=== PATIENT | female | born 1945 | race Caucasian/White ===

== ENCOUNTER 2023-12-02 08:00 | Outpatient (CLI) | payer MEDICARE | END 2023-12-02 23:59 | disposition home or self-care (01) | LOC: LAB.S 08:00 | PROVIDERS: ATTEND Nurse Practitioner | DX: R49.0 Dysphonia (principal) | CPT/HCPCS: 87070 ==

== ENCOUNTER 2024-08-14 13:57 | Inpatient (IN) ==
[2024-08-14 14:34] LABS: BASOPHILS # (AUTO) 0.1 10^3/uL (0.0-0.1); BASOPHILS % (AUTO) 0.8 %; EOSINOPHILS # (AUTO) 0.1 10^3/uL (0.0-0.7); EOSINOPHILS % (AUTO) 1.6 %; HGB - HEMOGLOBIN 15.4 g/dL (12.0-16.0); LYMPHOCYTES # (AUTO) 2.2 10^3/uL (1.5-3.5); LYMPHOCYTES % (AUTO) 24.2 %; MEAN CORPUSCULAR HEMOGLOBIN 29.6 pg (27.0-31.0); MEAN CORPUSCULAR HGB CONC 32.1 g/dL (32.0-36.0); MEAN CORPUSCULAR VOLUME 92.1 fL (81.0-99.0); MEAN PLATELET VOLUME 9.4 fL (7.9-10.8); MONOCYTES # (AUTO) 0.9 10^3/uL (0.0-1.0); MONOCYTES % (AUTO) 10.6 %; NEUTROPHILS # (AUTO) 5.6 10^3/uL (1.5-6.6); NEUTROPHILS % (AUTO) 62.6 %; PLT - PLATELET COUNT 293 10^3/uL (130-450); RED BLOOD COUNT 5.21 10^6/uL (4.20-5.40); RED CELL DISTRIBUTION WIDTH 13.5 % (12.0-15.0); WHITE BLOOD COUNT 8.9 x10^3/uL (4.8-10.8)
--- NOTE | 2024-08-14 14:46 | ED Physician Documentation ---
PD HPI MHE Stated complaint Stated Complaint: OVERDOSE Chief complaint Chief Complaint: MHE Additional information Additional information: 79-year-old female with history of recent left wrist fracture, depression, suicide attempt presents to the emergency department with her friend today for a second suicide attempt. Her friend who is interviewed alone says that recently the patient just went through a break-up and has been experiencing depression and mental health instability since then. She accidentally fell in early August on outstretched left arm and broke her left wrist and at that visit she did endorse some depression and suicidal ideation she was started on antidepressants but has not been on antidepressants recently. Patient's friend reports that last night sheWent to bed and she had a bottle of [place] pills about 12 pills in the bottle and when she woke this morning to go take a pill she noted that the bottle was empty. She does note that her antidepressant bottle of pills was not empty patient was very sleepy and lethargic when the friend confronted the patient about this the friend did admit to it. Patient interviewed alone she does endorse that she has recently had a break-up and has been having a hard time coping with this she says last time she attempted suicide was at her sister's house in [place] a couple years ago. She denies any homicidal ideation but is still currently feeling suicidal and said that she wanted to take the pills to make the pain go away and points to her chest. She is lethargic and sleepy. [place] Coma Scale Assess Eye opening: To Voice Verbal response: Oriented Motor response: Obeys Commands Total score: 14 Meds/Allgy Home Medications Ambulatory Orders Medication Instructions Recorded Confirmed bupropion HCl 100 mg tablet,12 hr 100 mg PO BID #120 tabs 08/05/24 08/08/24 sustained-release (Wellbutrin SR) fluoxetine 10 mg capsule (Prozac) 10 mg PO DAILY #60 caps 08/05/24 08/08/24 hydrocodone 5 mg-acetaminophen 325 1 tab PO Q4H PRN pain #14 tabs 08/05/24 08/08/24 mg tablet Allergies Allergies Allergy/AdvReac Type Severity Reaction Status Date / Time No Known Drug Allergies Allergy Verified 08/08/24 10:42 [facility] Social History Social History (Updated 08/08/24 @ 10:52 by Clarisa Hope MA) Smoking Status: Former smoker Relationship: Do you feel safe in your home environment?: Yes Suffered physical, verbal, emotional, or financial abuse?: No POLST Patient has POLST: No Exam Constitutional abnormal general appearance (disheveled), no apparent distress, abnormal body habitus (thin), limitations noted (altered mental status) and (behavioral limitations) and level of alertness abnormal (lethargic) HENMT normocephalic and head/scalp atraumatic Eyes PERRL Chest inspection of chest normal Respiratory breath sounds equal bilaterally and normal respiratory effort Cardiovascular normal heart rate noted Gastrointestinal abdomen normal to inspection, abdomen soft to palpation and nontender to palpation Genitourinary no CVA tenderness Extremities normal to inspection Psychiatry mental status abnormal (somnolent), oriented x3, thought process abnormality noted (suicidality), cooperative, affect abnormality noted (depressed) and (flat), psychomotor activity normal and memory normal Skin skin color normal, no rash and no ecchymosis noted Results Vitals Vitals: Vital Signs - 24 hr 08/14/24 14:10 08/14/24 14:13 08/14/24 14:20 Temperature 36.8 C Temperature Source Temporal Artery Scan Pulse Rate 58 L 55 L Respiratory Rate 16 14 Blood Pressure 118/75 111/64 O2 Saturation 96 98 O2 Source Room air Room air Pain Intensity 10 10 08/14/24 14:37 08/14/24 15:30 08/14/24 16:30 Temperature Temperature Source Pulse Rate 62 56 L 57 L Respiratory Rate 12 14 18 Blood Pressure 150/109 H 111/64 114/74 O2 Saturation 93 94 97 O2 Source Room air Room air Room air Pain Intensity 0 08/14/24 17:30 Temperature Temperature Source Pulse Rate 61 Respiratory Rate 20 Blood Pressure 118/74 O2 Saturation 94 O2 Source Room air Pain Intensity Oxygen O2 Source Room air Labs Labs: Laboratory Tests 08/14/24 08/14/24 08/14/24 14:27 16:19 17:18 WBC 8.9 RBC 5.21 Hgb 15.4 Hct 48.0 H MCV 92.1 MCH 29.6 MCHC 32.1 RDW 13.5 Plt Count 293 MPV 9.4 Neut # (Auto) 5.6 Lymph # (Auto) 2.2 [place] # (Auto) 0.9 Eos # (Auto) 0.1 Baso # (Auto) 0.1 Absolute Nucleated RBC 0.00 Nucleated RBC % 0.0 PT 11.8 INR 1.1 APTT 27.0 Sodium 137 137 Potassium 4.0 4.2 Chloride 105 105 Carbon Dioxide 25 27 Anion Gap 7.0 5.0 L BUN 22 H 22 H Creatinine 0.8 0.8 Estimated GFR (MDRD) 69 L 69 L Glucose 133 H 121 H Calcium 9.6 9.2 Total Bilirubin 1.1 H 1.0 AST 13 15 ALT 8 L 8 L Alkaline Phosphatase 81 72 Total Protein 6.6 6.4 Albumin 4.2 4.0 Globulin 2.4 2.4 Albumin/Globulin Ratio 1.8 1.7 Lipase 29 TSH 2.83 Salicylates < 1.5 Acetaminophen 71.8 H* 45.6 H* Ethyl Alcohol < 10.0 PD Medical Decision Making ED course ED course: 79-year-old female presents emergency department for [place] overdose for suicide attempt. Patient is pretty somnolent and not the most reliable historian as her friend reports that she has had some cognitive impairment undiagnosed but patient's friend is worried about possible early symptoms of dementia or Alzh eimer's. Initial labs are complete for further evaluation no leukocytosis no anemia normal PT/INR normal LFTs Tylenol level did come back elevated at 71.8 negative alcohol level. I spoke with the on-call poison control given that we do not know if the [place] overdose started last night or this morning and given that patient is not reliable historian we should presume that the overdose happened last night around 11 PM according to friend's timeline. Pharmacist recommended redrawing a Tylenol level in 2 hours from initial draw we review the Tylenol level and is downtrending at 45.6 which is concerning. We went ahead and started her on acetylcysteine we gave her a loading dose of 7.5 g infusion over 1 hour and we will plan to admit the patient. Hospitalist is agreeable to admit the patient she has received report and understands to continue acetylcysteine infusion under the standard dosing protocol and will reach out to pharmacy as well as Poison control. Friend is aware that patient will be admitted. Discharge Plan Discharge Patient Disposition: [facility] DC/Xfer Condition: Good Clinical Impression: Drug overdose, Depression with suicidal ideation, Suicide attempt Interventions: ED Admission Assessment Last Done: 08/14/24 19:58
[2024-08-14 14:47] LABS: ALBUMIN 4.2 g/dL (3.2-5.5); ALBUMIN/GLOBULIN RATIO 1.8 (1.0-2.2); ALKALINE PHOSPHATASE 81 IU/L (42-121); ALT ALANINE AMINOTRANSFERASE 8 IU/L (10-60); AST ASPARTATE AMINOTRANSFERASE 13 IU/L (10-42); BILIRUBIN,TOTAL 1.1 mg/dL (0.2-1.0); BUN - BLOOD UREA NITROGEN 22 mg/dL (6-20); CALCIUM 9.6 mg/dL (8.5-10.3); CARBON DIOXIDE - CO2 25 mmol/L (21-32); CHLORIDE 105 mmol/L (101-111); CREATININE 0.8 mg/dL (0.6-1.3); ETOH - ETHANOL < 10.0 mg/dL; GFR - MDRD 69 (>89); GLUCOSE 133 mg/dL (74-104); LIPASE 29 U/L (11-82); SODIUM 137 mmol/L (135-145); TOTAL PROTEIN 6.6 g/dL (6.4-8.9)
[2024-08-14 14:50] LABS: ACETAMINOPHEN 71.8 ug/mL; SALICYLATE < 1.5 mg/dL
[2024-08-14 15:03] LABS: THYROID STIMULATING HORMONE 2.83 uIU/mL (0.34-5.60)
[2024-08-14 16:38] LABS: ALBUMIN/GLOBULIN RATIO 1.7 (1.0-2.2); CALCIUM 9.2 mg/dL (8.5-10.3); CREATININE 0.8 mg/dL (0.6-1.3); POTASSIUM 4.2 mmol/L (3.5-4.5); TOTAL PROTEIN 6.4 g/dL (6.4-8.9)
[2024-08-14 16:41] LABS: ACETAMINOPHEN 45.6 ug/mL
[2024-08-14 17:40] LABS: INR 1.1 (0.8-1.2); PT - PROTHROMBIN TIME 11.8 secs (9.9-12.6)
[2024-08-14] MEDS ORDERED: SODIUM CHLORIDE FLUSH 0.9% 10 ML SYRINGE IVP PRN (18:28)
[2024-08-14] MEDS ORDERED: ONDANSETRON ODT 4 MG TABLET TL PRN (18:33)
[2024-08-14] MEDS ORDERED: HYDROmorphone 0.5 MG/0.5 ML SYRINGE IVP PRN (18:33)
--- NOTE | 2024-08-14 18:40 | HISTORY & PHYSICAL EXAMINATION ---
Chief Complaint Chief Complaint Chief Complaint: overdose, intentional, AMS History of Present Illness Admitted From Admitted From:: home History Obtained From Records Reviewed: previous ED records History of Present Illness HPI Comment/Other: 79 yo female with recent wrist fracture after FOOSH presents to ED with overdose sometime between 10pm and 11am. Took up to 3900 mg APAP, combined with hydrocodone. One previous suicide attempt via pills, not too long ago, after a relationship that ended. Unclear what she took or what the intervention was at that time. She admits to being depressed. She states she has issues with pieced people being close to her and then . She has been quite sad for the last 3 days of her recent break-up and distress over separation. She states she took "a handful" of hydrocodone and that it was medication that had been stored prescribed to her. She relates to me a recent history of a left wrist fracture that has taken away many of her coping mechanisms. 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 She is expected to get the fiberglass cast off her wrist on September 12. About a month from now. She states she does not drink alcohol very occasionally a glass of wine states she had 1 alcoholic beverage yesterday. Occasionally smokes marijuana but is noted that the marijuana does make her anxiety much worse and therefore does not often do it. 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 She presented to the emergency department today for altered mental status. When asked about her CODE STATUS she states DNR. I do not feel I can make her DNR as she is actively suicidal. She states that her longtime friend Tania Collins would be the person who would make her medical decisions where she unable to do so.PCP is Dayne Rojas. Meds/Allgy Home Medications Ambulatory Orders Medication Instructions Recorded Confirmed bupropion HCl 100 mg tablet,12 hr 100 mg PO BID #120 tabs 08/05/24 08/08/24 sustained-release (Wellbutrin SR) fluoxetine 10 mg capsule (Prozac) 10 mg PO DAILY #60 caps 08/05/24 08/08/24 hydrocodone 5 mg-acetaminophen 325 1 tab PO Q4H PRN pain #14 tabs 08/05/24 08/08/24 mg tablet Allergies Allergies Allergy/AdvReac Type Severity Reaction Status Date / Time No Known Drug Allergies Allergy Verified 08/08/24 10:42 [facility] Social History Social History (Updated 08/08/24 @ 10:52 by Clarisa Hope MA) Smoking Status: Former smoker Relationship: Do you feel safe in your home environment?: Yes Suffered physical, verbal, emotional, or financial abuse?: No POLST Patient has POLST: No POLST Status: Full Code Review of Systems Status of ROS: 10 or more systems reviewed and unremarkable except as noted in history and below Constitutional Reports: Fatigue; Denies: Fever, Chills or Malaise Eyes Denies: Change in vision Ears, nose, mouth, and throat Denies: Change in hearing or Neck pain Cardiovascular Reports: chest pain (clearly states to me that this is related to her emotional distress); Denies: Irregular heart rate or shortness of breath with exertion Respiratory Denies: Shortness of breath, Cough or Sputum production Gastrointestinal Reports: Poor appetite; Denies: Abdominal pain, Nausea or Vomiting Genitourinary Denies: Urinary frequency Musculoskeletal Denies: Neck pain Integumentary/Breast Denies: Rash, Itching or Dryness Neurological Denies: Headache Psychiatric Reports: Depression, Anxiety, Hopelessness and Memory loss; Denies: Panic attacks Endocrine Reports: Fatigue Prior Level of Functionality: independent Exam Constitutional Thin female lying in position on the bed. Appears disheveled HENMT normocephalic, hearing grossly normal bilaterally, external ears normal and dentition normal Eyes conjunctivae normal and no scleral icterus Neck/C-Spine visual inspection normal Lymph no lymphadenopathy noted Chest inspection of chest normal Respiratory breath sounds equal bilaterally and normal respiratory effort Cardiovascular normal heart rate noted Gastrointestinal abdomen normal to inspection and abdomen soft to palpation Extremities normal to inspection left upper extremity in a short arm cast. Neurology pcb designer II-XII intact, no movement abnormality noted and GCS 15 Psychiatry mental status grossly normal, oriented x3, cooperative and memory normal (seems to have a short term memory deficit. ) Skin skin color normal and no jaundice Depressed affect. Patient is alert and oriented to person place and time. She is also oriented to the situation. As the interview progresses she makes more frequent eye contact with me. Initially she was quite withdrawn. However she is somewhat preservative in her storytelling. She tells me a brief version of her life story, then she tells me about her more recent history and then she goes back and tells me about her early life without recalling that she had previously told me exactly the same thing. Conclusion/Plan Problem List (1) Drug overdose: Plan: Tylenol overdose. Please see levels below. By my reckoning patient took about 3900 mg of Tylenol sometime between 10 PM and 11 AM. She then presented to the emergency department. Discussed this patient with Floresita Seymour NP in the emergency department and decision was made to admit her for treatment of Tylenol overdose using the standard dosing protocol per poison control. I did also discussed this patient with Poison Control Center and and following their recommendations for when to repeat labs. I am following N-acetylcysteine protocol for Tylenol overdosing.I will check repeat CBC, CMP, INR and Tylenol level in the morning. I will then repeat the same labs about 2 hours before the current bag of N-acetylcysteine is finished. If her Tylenol level is undetectable with a.m. labs I will not check this in the afternoon. Laboratory Tests 08/14/24 08/14/24 08/14/24 14:27 16:19 17:18 INR 1.1 Acetaminophen 71.8 H* 45.6 H* (2) Suicide attempt: Plan: This is patient's second suicide attempt and recent history. Sounds like she has a long history of mental health issues. With issues in relationships. She has had much distress over recent separation. We will treat her medical issues overnight. She will be on one-to-one sitter for suicide prevention. I will obtain telepsych consultation in the morning. (3) Fracture of wrist: Plan: Recent fall on outstretched hand resulting in distal radius fracture being treated nonoperatively by orthopedics here at [facility]. She will be immobilized until September 12. Normal coping mechanisms for her are physical activity. Her inability to engage in physical activity has caused decline of her mental health. Qualifiers: Encounter type: initial encounter Laterality: left (4) Depression with suicidal ideation: Plan: Lifelong struggles with mental health. Known history of 2 recent suicide attempts. I am unclear if these have been more recent or if she has had previous attempts in her lifetime. Plan I have spent 85 minutes in the care of this patient today. This includes time [id number], review and ordering of diagnostic imaging and laboratory studies and consultation with other providers.. Discussion with Poison Control Center pharmacist for recommendations regarding labs and N-acetylcysteine protocol. Discussion with ED provider and decision to admit the patient for Tylenol overdose. Lab Results Lab results reviewed: Yes 08/14/24 14:27 08/14/24 16:19 Core Measures Anticipated LOS I expect patient to be DC'd or transferred within 96 hours.: Yes Issues Hospital Issues and Management Plan: Tylenol overdose Suicide attempt Appropriate treatment of Tylenol overdose and with N-acetylcysteine and monitoring of liver function and Tylenol level. Telepsych consultation for management of suicidal ideation DVT/VTE - Prophylaxis VTE/DVT Device ordered at admit?: Yes VTE/DVT Prophylaxis med ordered at admit?: Yes
[2024-08-14] MEDS: ACETYLCYSTEINE IV STA (18:43)
[2024-08-14] MEDS: DEXTROSE 5% IV STA (18:43)
[2024-08-14] MEDS: ACETYLCYSTEINE 3,000 MG in DEXTROSE 5% 500 ML IV ONE (20:01)
[2024-08-14] MEDS: HEPARIN 5,000 UNIT/ML VIAL SUBQ SCH (21:51)
[2024-08-14 23:14] LABS: BILIRUBIN,URINE NEGATIVE (NEGATIVE); GLUCOSE, URINE (UA) NEGATIVE (NEGATIVE); KETONES,URINE (UA) >=80 mg/dL (NEGATIVE); LEUKOCYTE ESTERASE, URINE NEGATIVE (NEGATIVE); NITRITE,URINE NEGATIVE (NEGATIVE); OCCULT BLOOD,URINE NEGATIVE (NEGATIVE); PROTEIN,URINE NEGATIVE (NEGATIVE); UROBILINOGEN,URINE 0.2 (NORMAL) E.U./dL (NORMAL)
[2024-08-14 23:15] LABS: CLARITY,URINE CLEAR (CLEAR)
[2024-08-14 23:31] LABS: AMPHETAMINE SCREEN,URINE NEGATIVE (NEGATIVE); BARBITURATE SCREEN,UR NEGATIVE (NEGATIVE); BENZODIAZEPINES SCREEN, URINE NEGATIVE (NEGATIVE); BUPRENORPHINE SCREEN, URINE NEGATIVE (NEGATIVE); COCAINE SCREEN URINE NEGATIVE (NEGATIVE); METHADONE SCREEN, URINE NEGATIVE (NEGATIVE); METHAMPHETAMINES SCREEN, URINE NEGATIVE (NEGATIVE); OPIATE SCREEN, URINE POSITIVE (NEGATIVE); OXYCODONE SCREEN, URINE NEGATIVE (NEGATIVE); THC CANNABINOID SCREEN, URINE POSITIVE (NEGATIVE); TRICYCLIC ANTIDEPRESSANT,URINE NEGATIVE (NEGATIVE)
[2024-08-15] MEDS: ACETYLCYSTEINE IV ONE (00:15)
[2024-08-15] MEDS: DEXTROSE 5% IV ONE (00:15)
[2024-08-15] MEDS: SODIUM CHLORIDE FLUSH 0.9% 10 ML SYRINGE IVP SCH (04:28)
[2024-08-15 04:46] LABS: BASOPHILS # (AUTO) 0.1 10^3/uL (0.0-0.1); BASOPHILS % (AUTO) 0.5 %; EOSINOPHILS # (AUTO) 0.1 10^3/uL (0.0-0.7); EOSINOPHILS % (AUTO) 0.9 %; HCT - HEMATOCRIT 45.7 % (37.0-47.0); HGB - HEMOGLOBIN 14.9 g/dL (12.0-16.0); LYMPHOCYTES # (AUTO) 1.6 10^3/uL (1.5-3.5); LYMPHOCYTES % (AUTO) 12.6 %; MEAN CORPUSCULAR HEMOGLOBIN 30.1 pg (27.0-31.0); MEAN CORPUSCULAR HGB CONC 32.6 g/dL (32.0-36.0); MEAN CORPUSCULAR VOLUME 92.3 fL (81.0-99.0); MEAN PLATELET VOLUME 9.9 fL (7.9-10.8); MONOCYTES # (AUTO) 1.1 10^3/uL (0.0-1.0); MONOCYTES % (AUTO) 8.2 %; NEUTROPHILS % (AUTO) 77.5 %; PLT - PLATELET COUNT 261 10^3/uL (130-450); RED BLOOD COUNT 4.95 10^6/uL (4.20-5.40); RED CELL DISTRIBUTION WIDTH 13.6 % (12.0-15.0)
[2024-08-15 04:58] LABS: ACETAMINOPHEN 7.3 ug/mL; ALBUMIN 3.9 g/dL (3.2-5.5); ALBUMIN/GLOBULIN RATIO 1.7 (1.0-2.2); CALCIUM 9.4 mg/dL (8.5-10.3); CREATININE 0.7 mg/dL (0.6-1.3); TOTAL PROTEIN 6.2 g/dL (6.4-8.9)
[2024-08-15 05:04] LABS: INR 1.3 (0.8-1.2); PT - PROTHROMBIN TIME 13.7 secs (9.9-12.6)
--- NOTE | 2024-08-15 08:53 | PROVIDER PROGRESS NOTE ---
Assessment/Plan Problem List (1) Drug overdose: Qualifiers: Encounter type: initial encounter Injury intent: intentional self-harm Qualified Code(s): T50.902A - Poisoning by unspecified drugs, medicaments and biological substances, intentional self-harm, initial encounter (2) Suicide attempt: (3) Fracture of wrist: Qualifiers: Encounter type: initial encounter Laterality: left Fracture type: c losed Qualified Code(s): S62.102A - Fracture of unspecified carpal bone, left wrist, initial encounter for closed fracture (4) Depression with suicidal ideation: Current Meds Current Meds: Current Medications Generic Name Dose Route Start Last Admin Trade Name Freq PRN Reason Stop Dose Admin Heparin Sodium (Porcine) 5,000 unit 08/14/24 21:00 08/15/24 08:37 Heparin 5,000 Unit/Ml Vial SUBQ 5,000 unit BID VOLODYMYR Administration Hydromorphone HCl 0.5 mg 08/14/24 18:33 Hydromorphone 0.5 Mg/0.5 Ml Syringe IVP Q2H PRN Pain 8 to 10 Ondansetron HCl 4 mg 08/14/24 18:33 Ondansetron Odt 4 Mg Tablet TL Q6HR PRN Nausea / Vomiting Sodium Chloride 10 ml 08/14/24 18:28 Sodium Chloride Flush 0.9% 10 Ml Syringe IVP PRN PRN NEEDED PER PROVIDER ORDERS Sodium Chloride 10 ml 08/15/24 01:00 08/15/24 08:38 Sodium Chloride Flush 0.9% 10 Ml Syringe IVP Not Given 0100,0900,1700 [facility] Lab Result 08/15/24 04:00 08/15/24 04:00 Subjective Subjective Patient Reports: Pain (L wrist discomfort associated with fracture and cast) Nursing Reports: No Complaints Objective Vital Signs: Vital Signs - 24 hr 08/14/24 14:10 08/14/24 14:13 08/14/24 14:20 Temperature 36.8 C Temperature Source Temporal Artery Scan Pulse Rate 58 L 55 L Pulse Rate [Brachial] Respiratory Rate 16 14 Blood Pressure 118/75 111/64 Blood Pressure [Right Brachial artery] O2 Saturation 96 98 O2 Source Room air Room air Sedation scale Pain Intensity 10 10 08/14/24 14:37 08/14/24 15:30 08/14/24 16:30 Temperature Temperature Source Pulse Rate 62 56 L 57 L Pulse Rate [Brachial] Respiratory Rate 12 14 18 Blood Pressure 150/109 H 111/64 114/74 Blood Pressure [Right Brachial artery] O2 Saturation 93 94 97 O2 Source Room air Room air Room air Sedation scale Pain Intensity 0 08/14/24 17:30 08/14/24 18:30 08/14/24 19:39 Temperature 36.6 C Temperature Source Temporal Artery Scan Pulse Rate 61 64 80 Pulse Rate [Brachial] Respiratory Rate 20 16 16 Blood Pressure 118/74 113/73 128/78 Blood Pressure [Right Brachial artery] O2 Saturation 94 96 96 O2 Source Room air Room air Room air Sedation scale Pain Intensity 08/14/24 21:00 08/14/24 23:27 08/15/24 07:26 Temperature 36.6 C 36.7 C 36.7 C Temperature Source Temporal Artery Scan Temporal Artery Scan Skin Pulse Rate Pulse Rate [Brachial] 81 72 84 Respiratory Rate 19 16 18 Blood Pressure Blood Pressure [Right Brachial artery] 127/96 H 129/82 117/70 O2 Saturation 93 96 95 O2 Source Room air Room air Room air Sedation scale 0-Fully awake 0-Fully awake 0-Fully awake Pain Intensity 0 Oxygen O2 Source Room air I&O (Last 24 Hrs): Intake and Output Totals x24h 08/13/24 08/14/24 08/15/24 23:59 23:59 23:59 Intake Total 245.5 / 245.5 875 / 875 Output Total 400 / 400 875 / 875 Balance -154.5 / -154.5 0 / 0 General: Alert, Cooperative and No acute distress Results Results: Laboratory Results WBC 13.0 x10^3/uL (4.8-10.8) H 08/15/24 04:00 RBC 4.95 10^6/uL (4.20-5.40) 08/15/24 04:00 Hgb 14.9 g/dL (12.0-16.0) 08/15/24 04:00 Hct 45.7 % (37.0-47.0) 08/15/24 04:00 MCV 92.3 fL (81.0-99.0) 08/15/24 04:00 MCH 30.1 pg (27.0-31.0) 08/15/24 04:00 MCHC 32.6 g/dL (32.0-36.0) 08/15/24 04:00 RDW 13.6 % (12.0-15.0) 08/15/24 04:00 Plt Count 261 10^3/uL (130-450) 08/15/24 04:00 MPV 9.9 fL (7.9-10.8) 08/15/24 04:00 Neut # (Auto) 10.0 10^3/uL (1.5-6.6) H 08/15/24 04:00 Lymph # (Auto) 1.6 10^3/uL (1.5-3.5) 08/15/24 04:00 [place] # (Auto) 1.1 10^3/uL (0.0-1.0) H 08/15/24 04:00 Eos # (Auto) 0.1 10^3/uL (0.0-0.7) 08/15/24 04:00 Baso # (Auto) 0.1 10^3/uL (0.0-0.1) 08/15/24 04:00 Absolute Nucleated RBC 0.00 x10^3/uL 08/15/24 04:00 Nucleated RBC % 0.0 /100WBC 08/15/24 04:00 PT 13.7 secs (9.9-12.6) H 08/15/24 04:00 INR 1.3 (0.8-1.2) H 08/15/24 04:00 APTT 27.0 secs (24.9-33.3) 08/14/24 17:18 Sodium 137 mmol/L (135-145) 08/15/24 04:00 Potassium 4.0 mmol/L (3.5-4.5) 08/15/24 04:00 Chloride 102 mmol/L (101-111) 08/15/24 04:00 Carbon Dioxide 28 mmol/L (21-32) 08/15/24 04:00 Anion Gap 7.0 (6-13) 08/15/24 04:00 BUN 15 mg/dL (6-20) 08/15/24 04:00 Creatinine 0.7 mg/dL (0.6-1.3) 08/15/24 04:00 Estimated GFR (MDRD) 81 (>89) L 08/15/24 04:00 Glucose 167 mg/dL (74-104) H 08/15/24 04:00 Calcium 9.4 mg/dL (8.5-10.3) 08/15/24 04:00 Total Bilirubin 1.0 mg/dL (0.2-1.0) 08/15/24 04:00 AST 11 IU/L (10-42) 08/15/24 04:00 ALT 7 IU/L (10-60) L 08/15/24 04:00 Alkaline Phosphatase 68 IU/L (42-121) 08/15/24 04:00 Total Protein 6.2 g/dL (6.4-8.9) L 08/15/24 04:00 Albumin 3.9 g/dL (3.2-5.5) 08/15/24 04:00 Globulin 2.3 g/dL (2.1-4.2) 08/15/24 04:00 Albumin/Globulin Ratio 1.7 (1.0-2.2) 08/15/24 04:00 Lipase 29 U/L (11-82) 08/14/24 14:27 TSH 2.83 uIU/mL (0.34-5.60) 08/14/24 14:27 Urine Color YELLOW 08/14/24 23:05 Urine Clarity CLEAR (CLEAR) 08/14/24 23:05 Urine pH 6.0 PH (5.0-7.5) 08/14/24 23:05 Ur Specific [place] >=1.030 (1.002-1.030) H 08/14/24 23:05 Urine Protein NEGATIVE mg/dL (NEGATIVE) 08/14/24 23:05 Urine Glucose (UA) NEGATIVE mg/dL (NEGATIVE) 08/14/24 23:05 Urine Ketones >=80 mg/dL (NEGATIVE) H 08/14/24 23:05 Urine Occult Blood NEGATIVE (NEGATIVE) 08/14/24 23:05 Urine Nitrite NEGATIVE (NEGATIVE) 08/14/24 23:05 Urine Bilirubin NEGATIVE (NEGATIVE) 08/14/24 23:05 Urine Urobilinogen 0.2 (NORMAL) E.U./dL (NORMAL) 08/14/24 23:05 Ur Leukocyte Esterase NEGATIVE (NEGATIVE) 08/14/24 23:05 Ur Microscopic Review NOT INDICATED 08/14/24 23:05 Urine Culture Comments NOT INDICATED 08/14/24 23:05 Salicylates < 1.5 mg/dL 08/14/24 14:27 Urine Opiates Screen POSITIVE (NEGATIVE) H 08/14/24 23:05 Ur Buprenorphine Scrn NEGATIVE (NEGATIVE) 08/14/24 23:05 Ur Oxycodone Screen NEGATIVE (NEGATIVE) 08/14/24 23:05 Urine Methadone Screen NEGATIVE (NEGATIVE) 08/14/24 23:05 Acetaminophen 7.3 ug/mL 08/15/24 04:00 Ur Barbiturates Screen NEGATIVE (NEGATIVE) 08/14/24 23:05 Ur Tricyclics Screen NEGATIVE (NEGATIVE) 08/14/24 23:05 Ur Phencyclidine Scrn NEGATIVE (NEGATIVE) 08/14/24 23:05 Ur Amphetamine Screen NEGATIVE (NEGATIVE) 08/14/24 23:05 U Methamphetamines Scrn NEGATIVE (NEGATIVE) 08/14/24 23:05 U Benzodiazepines Scrn NEGATIVE (NEGATIVE) 08/14/24 23:05 Urine Cocaine Screen NEGATIVE (NEGATIVE) 08/14/24 23:05 U Cannabinoids Screen POSITIVE (NEGATIVE) H 08/14/24 23:05 Ur Drug Screen Comment CUTOFF CONC BELOW: 08/14/24 23:05 Ethyl Alcohol < 10.0 mg/dL 08/14/24 14:27 ABX Reporting Has patient been on IV antibiotics over the past 48 hours?: No Current Medications Current Medications Current Medications: Current Medications Generic Name Dose Route Start Last Admin Trade Name Freq PRN Reason Stop Dose Admin Heparin Sodium (Porcine) 5,000 unit 08/14/24 21:00 08/15/24 08:37 Heparin 5,000 Unit/Ml Vial SUBQ 5,000 unit BID VOLODYMYR Administration Hydromorphone HCl 0.5 mg 08/14/24 18:33 Hydromorphone 0.5 Mg/0.5 Ml Syringe IVP Q2H PRN Pain 8 to 10 Ondansetron HCl 4 mg 08/14/24 18:33 Ondansetron Odt 4 Mg Tablet TL Q6HR PRN Nausea / Vomiting Sodium Chloride 10 ml 08/14/24 18:28 Sodium Chloride Flush 0.9% 10 Ml Syringe IVP PRN PRN NEEDED PER PROVIDER ORDERS Sodium Chloride 10 ml 08/15/24 01:00 08/15/24 08:38 Sodium Chloride Flush 0.9% 10 Ml Syringe IVP Not Given 0100,0900,1700 VOLODYMYR
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
--- NOTE | 2024-08-15 12:11 | PHARMACY PROGRESS NOTE ---
Best Possible Medication History Admit Date and Time: 08/14/24 1828 Home Medications Medication Instructions Recorded Confirmed Type bupropion HCl 100 mg tablet,12 hr 100 mg PO BID #120 tabs 08/05/24 08/15/24 Rx sustained-release (Wellbutrin SR) fluoxetine 10 mg capsule (Prozac) 10 mg PO DAILY #60 caps 08/05/24 08/15/24 Rx hydrocodone 5 mg-acetaminophen 325 1 tab PO Q4H PRN pain #14 tabs 08/05/24 08/15/24 Rx mg tablet Processed by: Pharmacy (Medication Reconciliation completed by Metal Drill OperatorSheldon) Medications reviewed in ED?: No Medication History completed: Yes Patient Interview: Completed Secondary Source(s): Pharmacy records (called [facility] to verify medications were picked up, as the insurance fill hx was not populating any medications.) [facility] Statement: As the person ultimately responsible for medication therapy, providers are able to order a medication from an existing home medication list in [facility] via the "Reconcile Routine" prior to Confirmation of that medication by research support specialist. Such practice is discouraged except when the physician, in their clinical judgment, deems that a medical need exists for a medication without regard to previous use.
[2024-08-15 13:42] LABS: BASOPHILS # (AUTO) 0.1 10^3/uL (0.0-0.1); BASOPHILS % (AUTO) 0.5 %; EOSINOPHILS # (AUTO) 0.3 10^3/uL (0.0-0.7); EOSINOPHILS % (AUTO) 2.1 %; HCT - HEMATOCRIT 45.2 % (37.0-47.0); HGB - HEMOGLOBIN 14.7 g/dL (12.0-16.0); LYMPHOCYTES # (AUTO) 1.6 10^3/uL (1.5-3.5); LYMPHOCYTES % (AUTO) 11.7 %; MEAN CORPUSCULAR HEMOGLOBIN 29.9 pg (27.0-31.0); MEAN CORPUSCULAR HGB CONC 32.5 g/dL (32.0-36.0); MEAN CORPUSCULAR VOLUME 92.1 fL (81.0-99.0); MEAN PLATELET VOLUME 9.4 fL (7.9-10.8); MONOCYTES # (AUTO) 1.3 10^3/uL (0.0-1.0); MONOCYTES % (AUTO) 9.6 %; NEUTROPHILS # (AUTO) 10.1 10^3/uL (1.5-6.6); NEUTROPHILS % (AUTO) 75.7 %; PLT - PLATELET COUNT 257 10^3/uL (130-450); RED BLOOD COUNT 4.91 10^6/uL (4.20-5.40); RED CELL DISTRIBUTION WIDTH 13.6 % (12.0-15.0); WHITE BLOOD COUNT 13.3 x10^3/uL (4.8-10.8)
[2024-08-15 13:54] LABS: INR 1.3 (0.8-1.2); PT - PROTHROMBIN TIME 14.2 secs (9.9-12.6)
[2024-08-15 13:55] LABS: ALBUMIN 3.8 g/dL (3.2-5.5); ALBUMIN/GLOBULIN RATIO 1.7 (1.0-2.2); BILIRUBIN,TOTAL 0.7 mg/dL (0.2-1.0); CALCIUM 9.2 mg/dL (8.5-10.3); CREATININE 0.7 mg/dL (0.6-1.3); POTASSIUM 3.5 mmol/L (3.5-4.5); TOTAL PROTEIN 6.1 g/dL (6.4-8.9)
[2024-08-15] MEDS: MULTIVITAMIN W/MINERALS TABLET PO SCH (17:33)
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
[2024-08-15] MEDS: hydrOXYzine PAMOATE 25 MG CAPSULE PO PRN (19:22)
[2024-08-15] MEDS ORDERED: QUEtiapine 25 MG TABLET PO PRN (19:26)
[2024-08-15] MEDS: PANTOPRAZOLE 40 MG VIAL IVP ONE (20:09)
[2024-08-15] MEDS: CALCIUM CARBONATE CHEW 500 MG TABLET PO SCH (20:10)
[2024-08-16 08:26] VITALS: TEMP 98.4
--- NOTE | 2024-08-16 08:45 | PROVIDER PROGRESS NOTE ---
Documented by User: Leila Cooper 08/16/24 13:36 Subjective Prog Note Date Prog Note Date: 08/16/24 Prog Note Time: 08:40 Subjective Subjective: 0820: first rounds with Dr. Chavez, patient currently asleep silently on left side with 1:1 sitter present. TRANSPORT TANK TECHNICIAN reports the night went well, but notes that patient perseverates on negative thoughts, especially during yesterday's telehealth psychiatry consultation. Will round again later for follow up and repeat physical exam when patient is awake. 0945: arrived to check on with 1:1 sitter present, she is asleep on her left side. TRANSPORT TANK TECHNICIAN reports she appears more depressed today, less active or talkative. TRANSPORT TANK TECHNICIAN woke up Soheila per her request to be awoken when provider/student returned. She is laying on her left side, appears tired after just waking, with no acute distress. She describes her mood today as "low-jaffe". She denies fever, pains other than her wrist fracture, headache, cough, abdominal discomfort, chest pain. Spoke with her about the psych telehealth visit last night and recommendation for inpatient psychiatric hospitalization to ensure safety. She agrees with plan and has no questions or concerns at this time. 1320: checked on patient with Edin ELDER. She is sitting upright in bed eating lunch with 1:1 sitter present. She reports no changes, when asked how she is feeling she shakes her head to indicate not well. No current concerns or questions. Current Medications Current Medications Current Medications: Current Medications Generic Name Dose Route Start Last Admin Trade Name Freq PRN Reason Stop Dose Admin Calcium Carbonate/Glycine 500 mg 08/15/24 21:00 08/15/24 20:10 Calcium Carbonate Chew 500 Mg Tablet PO 500 mg BID VOLODYMYR Administration Heparin Sodium (Porcine) 5,000 unit 08/14/24 21:00 08/15/24 20:09 Heparin 5,000 Unit/Ml Vial SUBQ 5,000 unit BID VOLODYMYR Administration Hydromorphone HCl 0.5 mg 08/14/24 18:33 Hydromorphone 0.5 Mg/0.5 Ml Syringe IVP Q2H PRN Pain 8 to 10 Hydroxyzine Pamoate 25 mg 08/15/24 18:03 08/15/24 19:22 Hydroxyzine Pamoate 25 Mg Capsule PO 25 mg QPM PRN Administration Anxiety Multivitamins/Minerals 1 tab 08/15/24 17:00 08/15/24 17:33 Multivitamin W/Minerals Tablet PO 1 tab DAILYWM VOLODYMYR Administration Ondansetron HCl 4 mg 08/14/24 18:33 Ondansetron Odt 4 Mg Tablet TL Q6HR PRN Nausea / Vomiting Quetiapine Fumarate 25 mg 08/15/24 19:26 Quetiapine 25 Mg Tablet PO QPM PRN Anxiety Sodium Chloride 10 ml 08/14/24 18:28 Sodium Chloride Flush 0.9% 10 Ml Syringe IVP PRN PRN NEEDED PER PROVIDER ORDERS Sodium Chloride 10 ml 08/15/24 01:00 08/16/24 01:25 Sodium Chloride Flush 0.9% 10 Ml Syringe IVP 10 ml 0100,0900,1700 VOLODYMYR Administration Objective Vital Signs/Intake & Output Reviewed Vital Signs: Yes Vital Signs: Vital Signs x48h Temp Resp BP Pulse Ox 08/16/24 08:25 36.9 C 12 130/84 96 Intake & Output: Intake & Output 08/13/24 08/14/24 08/15/24 08/16/24 23:59 23:59 23:59 23:59 Intake Total 245.5 / 245.5 3005.5 / 3005.5 Output Total 400 / 400 2450 / 2450 Balance -154.5 / -154.5 555.5 / 555.5 Weight (kg) 39.5 kg Objective General Appearance: positive No acute distress (laying on left side after waking from sleep, ) and Alert Eyes Bilateral: positive Normal inspection and PERRL ENT: positive No signs of dehydration Neck: positive Nml inspection Respiratory: positive Chest non-tender, No respiratory distress and Breath sounds nml; negative Wheezes, Rales or Rhonchi Cardiovascular: positive Regular rate & rhythm, No murmur and No gallop Abdomen: positive Non-tender and Nml bowel sounds Back: positive Nml inspection Skin: positive Color nml Extremities: positive Other (L wrist discomfort due to fracture and cast) Neurologic/Psychiatric: positive Oriented x3, CN's nml (2-12), Sensation nml and Depressed mood/affect; negative Motor nml (mild motor retardation with slower, thought-out movements) Lab Results 08/15/24 13:38 08/15/24 13:38 Other Labs: Lab Results x24hrs 08/15/24 Range/Units 13:38 WBC 13.3 H (4.8-10.8) x10^3/uL RBC 4.91 (4.20-5.40) 10^6/uL Hgb 14.7 (12.0-16.0) g/dL Hct 45.2 (37.0-47.0) % MCV 92.1 (81.0-99.0) fL MCH 29.9 (27.0-31.0) pg MCHC 32.5 (32.0-36.0) g/dL RDW 13.6 (12.0-15.0) % Plt Count 257 (130-450) 10^3/uL MPV 9.4 (7.9-10.8) fL Neut # (Auto) 10.1 H (1.5-6.6) 10^3/uL Lymph # (Auto) 1.6 (1.5-3.5) 10^3/uL Gibson # (Auto) 1.3 H (0.0-1.0) 10^3/uL Eos # (Auto) 0.3 (0.0-0.7) 10^3/uL Baso # (Auto) 0.1 (0.0-0.1) 10^3/uL Absolute Nucleated RBC 0.00 x10^3/uL Nucleated RBC % 0.0 /100WBC PT 14.2 H (9.9-12.6) secs INR 1.3 H (0.8-1.2) Sodium 135 (135-145) mmol/L Potassium 3.5 (3.5-4.5) mmol/L Chloride 101 (101-111) mmol/L Carbon Dioxide 27 (21-32) mmol/L Anion Gap 7.0 (6-13) BUN 16 (6-20) mg/dL Creatinine 0.7 (0.6-1.3) mg/dL Estimated GFR (MDRD) 81 L (>89) Glucose 121 H (74-104) mg/dL Calcium 9.2 (8.5-10.3) mg/dL Total Bilirubin 0.7 (0.2-1.0) mg/dL AST 10 (10-42) IU/L ALT 6 L (10-60) IU/L Alkaline Phosphatase 79 (42-121) IU/L Total Protein 6.1 L (6.4-8.9) g/dL Albumin 3.8 (3.2-5.5) g/dL Globulin 2.3 (2.1-4.2) g/dL Albumin/Globulin Ratio 1.7 (1.0-2.2) Acetaminophen 2.0 ug/mL ABX Reporting Has patient been on IV antibiotics over the past 48 hours?: No Assessment/Plan Problem List (1) Drug overdose: Impression: APAP level down to 2.0 yesterday. WBC remains elevated to 13.3 at last test (08/15/24 at 1338). WBC was normal (8.9) at admission. This is likely inflammatory leukocytosis due to acute APAP intoxication, which is expected to peak in first 24-48 hours after ingestion, then should start to return to normal. No signs or symptoms of infection or illness noted on exam or history. PT, INR remain slightly elevated but trending toward normal. ALT remains low, now 6. Recommend repeat CBC, CMP, PT, INR tomorrow morning to evaluate labs progress. Qualifiers: Encounter type: initial encounter Injury intent: intentional self-harm Qualified Code(s): T50.902A - Poisoning by unspecified drugs, medicaments and biological substances, intentional self-harm, initial encounter (2) Suicide attempt: Impression: Telehealth Psych consult yesterday resulted in recommendation for inpatient psychiatric hospitalization. SW is pending COVID result to send to [facility] so they can coordinate bed for patient. (3) Fracture of wrist: Impression: Chronic problem without change, no management at this time. Qualifiers: Encounter type: initial encounter Fracture type: closed Laterality: l eft Qualified Code(s): S62.102A - Fracture of unspecified carpal bone, left wrist, initial encounter for closed fracture (4) Depression with suicidal ideation: Impression: Inpatient psychiatric hospitalization to be arranged by ITP. Recommendation from psych telehealth consult is to keep medications as they are currently until inpatient psych takes over. Documented by User: Edin Velarde DNP 08/16/24 15:28 Objective Lab Results 08/15/24 13:38 08/15/24 13:38 Assessment/Plan Problem List (1) Drug overdose: Qualifiers: Encounter type: initial encounter Injury intent: intentional self-harm Qualified Code(s): T50.902A - Poisoning by unspecified drugs, medicaments and biological substances, intentional self-harm, initial encounter (2) Suicide attempt: (3) Fracture of wrist: Qualifiers: Encounter type: initial encounter Fracture type: closed Laterality: l eft Qualified Code(s): S62.102A - Fracture of unspecified carpal bone, left wrist, initial encounter for closed fracture (4) Depression with suicidal ideation:
[2024-08-16 14:10] LABS: INR 1.2 (0.8-1.2); PT - PROTHROMBIN TIME 12.8 secs (9.9-12.6)
[2024-08-16 15:08] VITALS: BP 115/73; O2SAT 95
--- NOTE | 2024-08-16 15:20 | Discharge Summary ---
Discharge Summary Admit Date: 08/14/24 Discharge Date: 08/16/24 Discharging Provider: Edin Velarde NP Primary Care Provider: Dayne Rojas Code Status: Attempt Resuscitation Discharge Facility Name: [facility] DIAGNOSES Admission Diagnoses: Drug overdose Suicide attempt by drug ingestion Fracture of left wrist Depression with suicidal ideation Discharge Diagnoses with Status of Each Condition: Drug overdose Resolved Suicide attempt by drug ingestionhistory. Came in for Percocet overdose, received NAC, Discharging to inpatient psych facility Fracture of left wristchronic Depression with suicidal ideationchronic HPI History of Present Illness: 79 yo female with recent wrist fracture after FOOSH presents to ED with overdose sometime between 10pm and 11am. Took up to 3900 mg APAP, combined with hydrocodone. One previous suicide attempt via pills, not too long ago, after a relationship that ended. Unclear what she took or what the intervention was at that time. She admits to being depressed. She states she has issues with pieced people being close to her and then . She has been quite sad for the last 3 days of her recent break-up and distress over separation. She states she took "a handful" of hydrocodone and that it was medication that had been stored prescribed to her. She relates to me a recent history of a left wrist fracture that has taken away many of her coping mechanisms. 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 She is expected to get the fiberglass cast off her wrist on September 12. About a month from now. She states she does not drink alcohol very occasionally a glass of wine states she had 1 alcoholic beverage yesterday. Occasionally smokes marijuana but is noted that the marijuana does make her anxiety much worse and therefore does not often do it. 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 She presented to the emergency department today for altered mental status. CONSULTS | PROCEDURES Consultations: Telepsychiatry HOSPITAL COURSE Hospital Course: Admitted to the hospital and placed on NAC protocol. Poison control was consulted. She confirmed that this is suicidal ideation. She was evaluated by social work, and was approved for discharge to [facility]. She was also evaluated by the telepsychiatrist, who recommended same ALLERGIES Allergies Allergy/AdvReac Type Severity Reaction Status Date / Time No Known Drug Allergies Allergy Verified 08/08/24 10:42 MEDICATIONS Ambulatory Orders Medication Instructions Recorded Confirmed bupropion HCl 100 mg tablet,12 hr 100 mg PO BID #120 tabs 08/05/24 08/15/24 sustained-release (Wellbutrin SR) fluoxetine 10 mg capsule (Prozac) 10 mg PO DAILY #60 caps 08/05/24 08/15/24 hydrocodone 5 mg-acetaminophen 325 1 tab PO Q4H PRN pain #14 tabs 08/05/24 08/15/24 mg tablet PHYSICAL EXAM AT DISCHARGE General Appearance: positive No acute distress and Alert Eyes Bilateral: positive Normal inspection ENT: positive ENT inspection nml Neck: positive Nml inspection Respiratory: positive Chest non-tender and No respiratory distress Cardiovascular: positive Regular rate & rhythm Peripheral Pulses: positive 2+ Abdomen: positive Non-tender Skin: positive Other (Left wrist in cast) Extremities: positive Other (Left wrist in cast) Neurologic/Psychiatric: positive Oriented x3 LABS 08/15/24 13:38 08/15/24 13:38 FOLLOW UP Follow Up: Being discharged to inpatient psych, recommend follow-up with PCP after discharge from the facility TIME SPENT Time Spent in Discharge (Minutes): 35 Discharge Plan Discharge Patient Disposition: 65 Psych Hosp/Unit DC/Xfer Condition: Good Medically Cleared Date:: 08/15/24 Prescriptions: New quetiapine 25 mg Tablet 25 mg PO QPM PRN (Reason: Anxiety) 30 Days Qty: 30 0RF Continued fluoxetine [Prozac] 10 mg capsule 10 mg PO DAILY Qty: 60 0RF bupropion HCl [Wellbutrin SR] 100 mg tablet sustained-release 12 hr 100 mg PO BID Qty: 120 0RF hydrocodone-acetaminophen 5-325 mg tablet 1 tab PO Q4H PRN (Reason: pain) Qty: 14 0RF Activity Restrictions: Activity as Tolerated Diet: Regular Health Concerns: He came into the hospital after he took too many Percocet. You were held in the hospital because of suicidal ideation/intent and also so we can give you medications to reverse your Tylenol overdose. You were seen by social work and telepsychiatry, who recommended placement in inpatient psychiatric facility. I would like for you to work with psychiatry/counseling, and develop a safe plan for when you leave the next facility. Please follow-up with your primary care provider after discharge from that facility Print Language: Somali Stand Alone Forms: PCP List Follow-up Care: Dayne Rojas MD [Primary Care Provider] -
== END 2024-08-16 19:20 | DRG 918 ==
LOC: ED 13:57 → MS2 18:28
PROVIDERS: ADMIT Physician Assistant Medical; ATTEND Physician Assistant Medical